=== PATIENT | female | born 1930 | race Caucasian/White ===

== ENCOUNTER 2020-03-07 18:51 | Inpatient (IN) | payer MEDICARE ==
[~2020-03-07] VITALS: Ht 167.6 cm; Wt 79.4 kg
[2020-03-07 19:28] LABS: RED BLOOD COUNT 3.42 M/UL (4.00-5.10); WHITE BLOOD COUNT 6.1 K/UL (4.5-11.0)
[2020-03-07 19:52] LABS: BUN/CREATININE RATIO 29 (0-10)
[2020-03-07] MEDS ORDERED: LOPRESSOR 25 MG25 MG PO (20:23)
[2020-03-07] MEDS ORDERED: PRENATAL VITAM1 EAC3 PO (20:23)
[2020-03-07] MEDS ORDERED: NORVASC5 MG PO (20:24)
[2020-03-07] MEDS ORDERED: ARTHRITIS PAIN650 MG PO (20:24)
[2020-03-07] MEDS ORDERED: LEXAPRO5 MG PO (20:24)
[2020-03-07] MEDS ORDERED: MYSOLINE TAB 5050 MG PO (20:25)
[2020-03-07] MEDS ORDERED: ASPIRIN81 MG PO (20:26)
[2020-03-07] MEDS ORDERED: FIBER THERAPY625 MG PO (20:26)
[2020-03-07] MEDS ORDERED: LATANOPROST 0.7.5 ML OP (20:27)
[2020-03-07] MEDS ORDERED: DICLOFONO2.5 GM TP (20:28)
[2020-03-07] MEDS ORDERED: TAMSULOSIN HCL0.4 MG PO (20:29)
[2020-03-07] MEDS ORDERED: NITROFURANTOIN100 MG PO (20:31)
[2020-03-08 04:04] LABS: HEMOGLOBIN 11.6 gm/dl (12.3-15.3); RED BLOOD COUNT 3.52 M/UL (4.00-5.10); WHITE BLOOD COUNT 7.5 K/UL (4.5-11.0)
[2020-03-08] MEDS ORDERED: LATANOPROST2.5 ML OP (15:39)
[2020-03-09 07:43] LABS: HEMOGLOBIN 12.6 gm/dl (12.3-15.3); RED BLOOD COUNT 3.86 M/UL (4.00-5.10); WHITE BLOOD COUNT 8.6 K/UL (4.5-11.0)
[2020-03-10 03:17] LABS: HEMOGLOBIN 12.6 gm/dl (12.3-15.3); RED BLOOD COUNT 3.89 M/UL (4.00-5.10); WHITE BLOOD COUNT 10.2 K/UL (4.5-11.0)
[2020-03-11 02:31] LABS: HEMOGLOBIN 13.2 gm/dl (12.3-15.3); RED BLOOD COUNT 4.06 M/UL (4.00-5.10)
[2020-03-12 04:40] LABS: HEMOGLOBIN 13.4 gm/dl (12.3-15.3); RED BLOOD COUNT 4.1 M/UL (4.00-5.10); WHITE BLOOD COUNT 9.2 K/UL (4.5-11.0)
[2020-03-14] MEDS ORDERED: ELIQUIS 2.5 MG2.5 MG PO (19:38)
[2020-03-15 04:14] LABS: HEMOGLOBIN 13.1 gm/dl (12.3-15.3); RED BLOOD COUNT 4.07 M/UL (4.00-5.10); WHITE BLOOD COUNT 10.4 K/UL (4.5-11.0)
[2020-03-16] MEDS ORDERED: ELIQUIS 2.5 MG2.5 MG PO (13:06)
[2020-03-16] MEDS ORDERED: AMPICILLIN 500500 MG PO (13:06)
[2020-03-16] MEDS ORDERED: MELATONIN3 MG PO (13:06)
[2020-03-16] MEDS ORDERED: LOPRESSOR 50 MG50 MG PO (13:06)
== END 2020-03-16 13:15 | DRG 64 ==
LOC: ER1 18:51 → PROG CARE 23:58 → MED SURG 4 23:58 → CDU 23:58 → M/S 03-08 13:23 → PROG CARE 03-08 13:23 → CDU 03-08 13:23 → MED SURG 4 03-11 13:58
PROVIDERS: Family Medicine; ADMIT Internal Medicine
PROC: B24BYZZ Ultrasonography of Heart with Aorta using Other Contrast (ICD-10-PCS; principal; 2020-03-09)
DX: I63.412 Cerebral infarction due to embolism of left middle cerebral artery (principal); G93.6 Cerebral edema; G93.49 Other encephalopathy; G81.91 Hemiplegia, unspecified affecting right dominant side; N17.9 Acute kidney failure, unspecified; N30.00 Acute cystitis without hematuria; E87.1 Hypo-osmolality and hyponatremia; R47.01 Aphasia; R29.810 Facial weakness; I12.9 Hypertensive chronic kidney disease with stage 1 through stage 4 chronic kidney disease, or unspecified chronic kidney disease; N18.30 Chronic kidney disease, stage 3 unspecified; I16.0 Hypertensive urgency; D69.6 Thrombocytopenia, unspecified; D64.9 Anemia, unspecified; E11.22 Type 2 diabetes mellitus with diabetic chronic kidney disease; E11.65 Type 2 diabetes mellitus with hyperglycemia; B95.2 Enterococcus as the cause of diseases classified elsewhere; Z86.73 Personal history of transient ischemic attack (TIA), and cerebral infarction without residual deficits; Z20.822 Contact with and (suspected) exposure to COVID-19; I48.91 Unspecified atrial fibrillation; Z79.01 Long term (current) use of anticoagulants; Z79.82 Long term (current) use of aspirin; E83.42 Hypomagnesemia; R47.1 Dysarthria and anarthria
CPT/HCPCS: ECHO; 36415; 70450; 70496; 70498; 70551; 71045; 80048; 80053; 80202; 81001; 82550; 82553; 83735; 83874; 84439; 84443; 84484; 85025; 85610; 86140; 87077; 87086; 87186; 87635; 92507; 92526; 92610; 93005; 93306; 96374; 97110-GP-CQ; 97163; 97166; 97530; 97530-GP-CQ; 97535; 99285; G0378; J0290; J0696; J1650; J3370; J7030; J7050; J7070; Q9967; U0002